=== PATIENT | female | born 1965 | race Caucasian/White ===

== ENCOUNTER → 2023-11-05 06:59 | Outpatient (REF) | payer BC, SELFPAY ==
[2023-11-05 09:51] LABS: % Basophils 0.7 % (0-2); % Eosinophils 3.7 % (0-6); % Lymphocytes 42.9 % (20.5-51.1); % Monocytes 7.6 % (1.7-9.3); % Neutrophils 45.1 % (42.2-75.2); Absolute Eosinophils 0.2 10^3/uL (0-0.7); Absolute Lymphocytes 1.7 10^3/uL (1.2-3.4); Absolute Monocytes 0.3 10^3/uL (0.1-0.6); Absolute Neutrophils 1.8 10^3/uL (1.4-6.5); Hematocrit 36.7 % (37.0-47.0); Hemoglobin 11.8 g/dL (12.0-16.0); Mean Corp Hgb Conc. 32.2 g/dL (33.0-37.0); Mean Corpuscular Hgb 26.8 pg (27.0-31.0); Mean Corpuscular Volume 83.2 fL (81.0-99.0); Mean Platelet Volume 10.5 fL (7.4-10.4); Nucleated Red Blood Cells % 0 %; Platelet Count 225 10^3/uL (130-400); Red Blood Cell Count 4.41 10^6/uL (4.20-5.40); Red Cell Dist. Width 12.8 % (11.5-14.5); White Blood Cell Count 4.1 10^3/uL (4.8-10.8)
[2023-11-05 10:25] LABS: ALT (SGPT) 16 U/L (0-35); AST (SGOT) 26 U/L (14-36); Albumin 4.2 g/dl (3.5-5.0); Alkaline Phosphatase 66 U/L (38-126); Blood Urea Nitrogen 17 mg/dl (7-17); Calcium 9.9 mg/dl (8.4-10.2); Carbon Dioxide 31 mmol/L (22-30); Chloride 103 mmol/L (98-107); Glucose 82 mg/dl (70-99); HDL Cholesterol 83 mg/dl; LDL Cholesterol, Calculated 166 mg/dl; Potassium 4.1 mmol/L (3.5-5.1); Sodium 139 mmol/L (135-145); Total Bilirubin 1.2 mg/dl (0.2-1.3); Total Cholesterol 267 mg/dl (50-199); Triglyceride 90 mg/dl (10-149); Very Low Density Lipoprotein 18 mg/dl (0-30); eGFR > 60.00
== END ==
LOC: HWLAB 06:59
PROVIDERS: ATTENDING PHYSICIAN Psychiatry & Neurology Neurology; FAMILY PHYSICIAN Physician Assistant Medical
DX: G40.109 Localization-related (focal) (partial) symptomatic epilepsy and epileptic syndromes with simple partial seizures, not intractable, without status epilepticus (principal)
CPT/HCPCS: 36415; 80053; 80061; 85025